=== PATIENT | female | born 1955 | race Caucasian/White ===

== ENCOUNTER → 2019-08-08 13:54 | Outpatient (CLI) | payer OTHER, SELFPAY | DX: M81.0 Age-related osteoporosis without current pathological fracture (principal) | CPT/HCPCS: 77080 ==

== ENCOUNTER → 2023-01-16 11:23 | Outpatient (CLI) | payer OTHER, SELFPAY ==
--- NOTE | 2023-01-16 11:28 | DI.RAD.S_ITS ---
Bone Density Report Name: ALEXANDRA DALY Age: 67 Sex: Female Ethnicity: White Date of : 1955 Indication: osteopenia; monitoring treatment; Referring Provider: KATH TALLEY Study: Bone densitometry was performed. Exam Date: January 16, 2023 Accession number: [id number] Bone Density: Region BMD T-score Z-score Classification AP Spine(L1-L4) 0.963 -0.8 1.3 Normal Femoral Neck (Left) 0.517 -3.0 -1.2 Osteoporosis Total Hip (Left) 0.671 -2.2 -0.8 Osteopenia Femoral Neck (Right) 0.516 -3.0 -1.2 Osteoporosis Total Hip (Right) 0.672 -2.2 -0.7 Osteopenia Total Hip Mean 0.671 -2.2 -0.8 Osteopenia World Health Organization criteria for BMD impression classify patients as: Normal (T-score at or above -1.0), Osteopenia (T-score between -1.0 and -2.5), or Osteoporosis (T-score at or below -2.5). 10-year Fracture Risk: FRAX not reported because: Some T-score for Spine Total or Hip Total or Femoral Neck at or below -2.5 Treated for osteoporosis Previous Exams: -- Region Exam Age BMD T-score BMD Change BMD Change Date g/cm2 vs Baseline vs Previous -- AP Spine (L1-L4) 01/16/2023 67 0.963 -0.8 0.004 (0.4%)# 0.004 (0.4%)# 08/08/2019 63 0.959 -0.8 Total Hip(Left) 01/16/2023 67 0.671 -2.2 -0.024 (-3.5%)# -0.024 (-3.5%)# 08/08/2019 63 0.695 -2.0 Total Hip(Right) 01/16/2023 67 0.672 -2.2 -0.037 (-5.2%)# -0.037 (-5.2%)# 08/08/2019 63 0.709 -1.9 -- *Denotes significance at 95% confidence level, LSC for AP Spine = 0.022 g/cm2, LSC for Total Hip = 0.027 g/cm2 # Denotes dissimilar scan types or analysis methods Impression: The patient has osteoporosis, based on the Left Femoral Neck T-score. No significant bone loss was observed. Discussion: PATIENT UNDER TREATMENT WITH NO SIGNIFICANT BMD LOSS SINCE LAST EXAM. In an untreated patient, BMD typically declines with age. A lack of decline or gain is usually a sign that treatment is efficacious and fracture risk is reduced. It is important to ask patients whether they are taking their medications and to encourage continued and appropriate compliance with their osteoporosis therapies to reduce fracture risk. It is also important to review their risk factors and encourage appropriate calcium and vitamin D intakes, exercise, fall prevention and other lifestyle measures. Follow-Up: Consider a repeat BMD and Vertebral Fracture Assessment (VFA) exam in 2 years or sooner if medically necessary, to reassess this patient's status. Reported by: CAMPOS SRINIVASAN M.D. on 01/16/2023 12:04:00 PM.
--- NOTE | 2023-01-16 11:28 | DI.CT.S_ITS ---
PROCEDURE: CT CHEST WO CON INDICATIONS: F/U PULMONARY NODULE, OSTEOPOROSIS TECHNIQUE: Noncontrast 5 mm thick sections acquired from the pulmonary apices to the posterior costophrenic angles. 1 mm lung window, 5 mm thick coronal and sagittal and 7 mm axial MIP reformats were then acquired. For radiation dose reduction, the following was used: automated exposure control, adjustment of mA and/or kV according to patient size. COMPARISON: [facility], CT, CT LOW DOSE LUNG CA SCREENING, 01/30/2020, 13:00. Outside Facility, RG, CT THORAX W/O CONTRAST, 01/20/2021, 15:30. FINDINGS: Lungs and pleura: Nodules include: -right middle lobe: 5 mm (3/215), unchanged -right lower lobe: 5 mm (3/250), unchanged -left lower lobe: 4 mm (3/289), unchanged Emphysema is present. No consolidation or pleural effusion. Mediastinum: No pericardial effusion. Thoracic aorta and central pulmonary arteries are normal in size. Esophagus is normal in caliber. Coronary artery calcifications are present Bones and chest wall: Multilevel degenerative change of the visualized spine. No axillary or supraclavicular adenopathy by size criteria. Abdomen: Visualized upper abdominal solid organs and bowel loops appear normal in the absence of contrast. IMPRESSION: No significant interval change in small pulmonary nodules. Dictated by: Jose Holbrook M.D. on 01/20/2023 at 16:17 Approved by: Jose Holbrook M.D. on 01/20/2023 at 16:29
== END ==
PROVIDERS: Referring Provider Physician Assistant; Visit Provider Physician Assistant
DX: R91.8 Other nonspecific abnormal finding of lung field (principal); M81.0 Age-related osteoporosis without current pathological fracture; E21.3 Hyperparathyroidism, unspecified; Z78.0 Asymptomatic menopausal state; Z79.83 Long term (current) use of bisphosphonates
CPT/HCPCS: 71250; 77080

== ENCOUNTER 2023-01-18 15:01 | Emergency (ER) | payer OTHER, SELFPAY ==
[2023-01-18] VITALS (19 sets, daily range): BP systolic 129–175; BP diastolic 68–88; PULSE 69–86; RESP 14–24; TEMP 36.7; O2SAT 96–100; BMI 22.1
--- NOTE | 2023-01-18 | DI.RAD.S_ITS ---
PROCEDURE: XR FOREARM LT 2V INDICATIONS: POST REDUCTION TECHNIQUE: 2 views of the forearm were acquired. COMPARISON: [facility], CR, XR WRIST LT MIN 3V, 01/18/2023, 15:17. FINDINGS: Bones: Casting material obscures fine bony detail. Distal radius comminuted fracture, similar alignment. No proximal shaft fracture. No dislocations. No suspicious bony lesions. Soft tissues: No suspicious soft tissue calcifications or masses. IMPRESSION: Similar alignment of the distal radius fracture post casting. Dictated by: Marek Goodwin M.D. on 01/18/2023 at 20:06 Approved by: Marek Goodwin M.D. on 01/18/2023 at 20:08
--- NOTE | 2023-01-18 15:19 | DI.RAD.S_ITS ---
PROCEDURE: XR WRIST LT MIN 3V INDICATIONS: fall/injury TECHNIQUE: 4 views of the wrist were acquired. COMPARISON: None. FINDINGS: Bones: Comminuted fracture of the distal radius. There is mild impaction and dorsal angulation. No dislocations. No suspicious bony lesions. Scaphoid view: Intact. Soft tissues: No suspicious soft tissue calcifications. IMPRESSION: Distal radius fracture with dorsal angulation. Dictated by: Marek Goodwin M.D. on 01/18/2023 at 15:30 Approved by: Marek Goodwin M.D. on 01/18/2023 at 15:32
--- NOTE | 2023-01-18 15:19 | ED_ITS ---
HPI - Extremity Injury (Upper) <Anjel Winslow MD - Last Filed: 01/18/23 15:20> General Chief Complaint: Extremity Injury, Upper Stated Complaint: left wrist injury/fell yesterday Time Seen by Provider: 01/18/23 15:19 Source: patient Mode of arrival: Ambulatory History of Present Illness HPI narrative: While walking on the beach last night she tripped and fell and landed on her left wrist. She is had severe left wrist pain through the night though she thought it was initially sprain she believes now it may be fractured. She did land on her face she says but she did not lose consciousness nor she had any se ivonne head or neck pain since. She has a little bit of neck soreness but she is convinced she does not have a fracture. She is only here today because of left wrist pain. Past medical history otherwise relatively benign. No abdominal pain chest pain shortness of breath. Related Data Previous Rx's Medication Instructions Recorded hydrocodone 5 mg-acetaminophen 325 1 tab PO Q4-6H PRN pain #20 tabs 01/18/23 mg tablet Patient History <Anjel Winslow MD - Last Filed: 01/18/23 15:20> Social History Smoking Status: Former smoker Smoking Status: Former smoker alcohol intake frequency: 0-2 drinks per day Substance Use Type: does not use Exam <Anjel Winslow MD - Last Filed: 01/18/23 15:20> Narrative Exam Narrative: GENERAL: Alert, cooperative and in no distress. HEAD: Atraumatic. Normocephalic. EYES: Sclera are clear without icterus. Extraocular movements are full. ENT: No rhinorrhea. Oropharynx is moist. Mouth exam is benign. NECK: Supple. Full range of motion. No midline tenderness to the spine. Full range of motion minimal muscular tenderness. CARDIOVASCULAR: Normal rate and rhythm without murmur gallop or rub. RESPIRATORY: Clear to auscultation. Breath sounds equal bilaterally. No wheezes, rales, or rhonchi. GASTROINTESTINAL: Abdomen soft, non-tender, nondistended. EXTREMITIES: No edema, full range of motion. Obvious deformity to the distal wrist on the left normal radial and ulnar pulses. 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 BACK: Normal inspection, no CVA tenderness. NEURO: Nonfocal examination, normal speech, normal gait. SKIN: No rash or erythema of visible areas PSYCH: Normally oriented. Normal range of affect. Appropriate behavior Initial Vital Signs Initial Vital Signs: Vital Signs Temperature 98.1 F 01/18/23 15:13 Pulse Rate 86 01/18/23 15:13 Respiratory Rate 16 01/18/23 15:13 Blood Pressure 129/70 01/18/23 15:13 Pulse Oximetry 98 01/18/23 15:13 Oxygen Delivery Method Room Air 01/18/23 15:13 <Meek Guardado DO - Last Filed: 01/19/23 08:05> Initial Vital Signs Initial Vital Signs: Vital Signs Temperature 98.1 F 01/18/23 15:13 Pulse Rate 86 01/18/23 15:13 Respiratory Rate 16 01/18/23 15:13 Blood Pressure 129/70 01/18/23 15:13 Pulse Oximetry 98 01/18/23 15:13 Oxygen Delivery Method Room Air 01/18/23 15:13 <Meek Guardado DO - Last Filed: 01/19/23 08:05> Orthopedic Fracture Reduction Fracture #1: Time Out Performed: Yes Side: left Fracture Reduction Location: radius Technique: direct manipulation Post Reduction X-rays Demonstrate: anatomical reduction Post-reduction neuro exam: intact Post-reduction vascular exam: intact Splint Applied: Yes Patient Tolerated Procedure: Well Orthopedic Splinting/Casting Injury #1: Side: left Upper Extremity Injury Location: wrist Upper Extremity Immobilizer: sling/shoulder immobilizer and sugar tong splint Post splinting neuro exam: intact Post splinting vascular exam: intact Placed by: Provider Procedural Sedation Consent signed: Yes Time out performed: Yes Indication: fracture/dislocation reduction ASA Class: II Mallampati Airway Classification: Class II Preparation: secured entrance monitor applied, pulse oximeter, capnometry used, supplemental O2 applied, suction/airway equipment at bedside and IV secured IV Propofol dose (mg): 40 Intraservice time/total sedation time (min): 12 ED Sedation Level: Moderate (Concious) Patient Tolerated Procedure: Well Complications: none Course <Anjel Winslow MD - Last Filed: 01/18/23 15:20> Orders Ordered: Discontinued Medications Hydrocodone Bitart/Acetaminophen (Hydrocodone/Acet 5/325 Prepack) 1 bottle MISC SEEINSTR ONE Stop: 01/18/23 18:20 Last Admin: 01/18/23 19:58 Dose: 1 bottle Documented By: ERNST Ondansetron HCl (Ondansetron 4 Mg Odt Prepack) 1 bottle MISC SEEINSTR ONE Stop: 01/18/23 18:20 Last Admin: 01/18/23 19:58 Dose: 1 bottle Documented By: ERNST Propofol (Propofol 200 Mg/20 Ml Vial) 115 mg 2 mg/kg (115 mg) IV NOW ONE Stop: 01/18/23 15:50 Last Admin: 01/18/23 19:03 Dose: Not Given Documented By: CTS Propofol (Propofol 200 Mg/20 Ml Vial) 55 mg 1 mg/kg (55 mg) IV NOW ONE Stop: 01/18/23 18:20 Last Admin: 01/18/23 19:03 Dose: 40 mg Documented By: CTS Vital Signs Vital signs: Vital Signs - 8 hr 01/18/23 15:13 Temperature 98.1 F Pulse Rate 86 Respiratory Rate 16 Blood Pressure 129/70 Pulse Oximetry 98 Oxygen Delivery Method Room Air <Meek Guardado DO - Last Filed: 01/19/23 08:05> Orders Ordered: Discontinued Medications Hydrocodone Bitart/Acetaminophen (Hydrocodone/Acet 5/325 Prepack) 1 bottle MISC SEEINSTR ONE Stop: 01/18/23 18:20 Last Admin: 01/18/23 19:58 Dose: 1 bottle Documented By: ERNST Ondansetron HCl (Ondansetron 4 Mg Odt Prepack) 1 bottle MISC SEEINSTR ONE Stop: 01/18/23 18:20 Last Admin: 01/18/23 19:58 Dose: 1 bottle Documented By: ERNST Propofol (Propofol 200 Mg/20 Ml Vial) 115 mg 2 mg/kg (115 mg) IV NOW ONE Stop: 01/18/23 15:50 Last Admin: 01/18/23 19:03 Dose: Not Given Documented By: CTS Propofol (Propofol 200 Mg/20 Ml Vial) 55 mg 1 mg/kg (55 mg) IV NOW ONE Stop: 01/18/23 18:20 Last Admin: 01/18/23 19:03 Dose: 40 mg Documented By: CTS Consultations Consultation #1: Dr. Lopez (Ortho)> happy with plan. Splint, sling, pain control, follow up. Vital Signs Vital signs: Vital Signs - 8 hr 01/18/23 15:13 Temperature 98.1 F Pulse Rate 86 Respiratory Rate 16 Blood Pressure 129/70 Pulse Oximetry 98 Oxygen Delivery Method Room Air MDM - Extremity Injury (Upper) <Anjel Winslow MD - Last Filed: 01/18/23 15:20> Lab Data Labs: Point of Care Testing Test Results Negative <Meek Guardado DO - Last Filed: 01/19/23 08:05> Lab Data Labs: Point of Care Testing Test Results Negative MDM Narrative Medical decision making narrative: [67] year old patient presents with wrist pain after ground level mechanical fall Multiple etiologies for patient's symptoms considered including, but not limited to: [Fracture, dislocation versus other] Prior Charts reviewed in our EMR Primary Historian: patient Imaging reviewed: Distal radius fracture with dorsal angulation Consultations: Orthopedics, see details above Patient's symptoms improved over duration of stay with above-stated therapies. Patient in splint and sling, sent with prepack for both hydrocodone and Zofran, prescription for hydrocodone. Patient given instructions for follow-up and contact information for Orthopedic office. Findings and discharge diagnosis discussed with patient/family followed by verbalization of understanding Return precautions discussed with patient/family whom verbalize understanding of diagnosis and plan Discharge Plan Departure Patient Disposition: Home Clinical Impression: Distal radial fracture Qualifiers: Encounter type: initial encounter Fracture type: closed Fracture morphology: other fracture Laterality: left Qualified Code(s): S52.592A - Other fractures of lower end of left radius, initial encounter for closed fracture Instructions: DI for Distal Radius Fracture Activity Restrictions/Additional Instructions: *You have been diagnosed with [left distal radius fracture] *What to do: *Please continue to take your regular medications as directed. [ x] New medication prescriptions sent to your pharmacy: [ [facility] in [place]] [ ] New medication written as a paper prescription [x] Tylenol and occasional Motrin for pain *Please follow up with [ John] of [facility] in 2-3 days, call for an appointment. Let them know you were seen in the Emergency Department and that we ask that you be seen in follow up. We will electronically transmit a record of today's note if your PCP is in our system *Return to Emergency Department if you should have any new, worsening or concerning symptoms, such as [worsening pain, significant swelling, cold extremities, numbness, tingling, weakness or other bothersome symptoms Splint Care: Keep splint clean and dry. Elevated affected body part to decrease swelling. OK to use ice pack on the affected body part. Use for 15-20 minutes each time, for 5-6x per day. If you develop worsening pain, numbness, tingling, discoloration of the affected body part, loosen the splint by loosening the NATE wrap, and either see your doctor for an urgent re-assessment, or return to the Emergency Department. Return to the Emergency Department for any new or worsening symptoms. You have been prescribed a short course of narcotic medications. These are potentially dangerous and addictive medications that should be used carefully. While on these medications you cannot drive or operate heavy machinery. Additionally, you cannot sign legal documents or perform any duties such as this. 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 Please understand that we cannot provide further refills of narcotics or controlled substances through the ED and your pain management will need to be through your Primary Care Provider Prescriptions: New hydrocodone-acetaminophen 5-325 mg tablet 1 tab PO Q4-6H PRN (Reason: pain) Qty: 20 0RF Referrals: Talha Lopez MD [Physician] - Leana Warner MD [Primary Care Provider] - Stand Alone Forms: Patient Portal/API
[2023-01-18] MEDS: propofoL 200 MG/20 ML VIAL 55 MG IV (19:03)
[2023-01-18] MEDS: HYDROCODONE/ACET 5/325 PREPACK 1 BOTTLE MISC (19:58)
[2023-01-18] MEDS: ONDANSETRON 4 MG ODT PREPACK 1 BOTTLE MISC (19:58)
== END 2023-01-18 20:05 | disposition home or self-care (01) ==
PROVIDERS: Emergency Provider Emergency Medicine
DX: S52.502A Unspecified fracture of the lower end of left radius, initial encounter for closed fracture (principal); W01.0XXA Fall on same level from slipping, tripping and stumbling without subsequent striking against object, initial encounter
CPT/HCPCS: 25605; 29125; 73090; 73110; 99152; 99284; J2704

== ENCOUNTER 2023-01-22 09:26 | Day surgery (SDC) | payer OTHER, SELFPAY ==
[2023-01-21 13:30] VITALS: BMI 22.1
[2023-01-22] VITALS (9 sets, daily range): BP systolic 152–189; BP diastolic 69–94; PULSE 15–82; RESP 12–18; TEMP 36.4–36.9; O2SAT 96–99; BMI 22.1
[2023-01-22] MEDS: LACTATED RINGERS 1,000 ML 42 ML IV (10:11)
--- NOTE | 2023-01-22 10:33 | P.HP_ITS ---
History of Present Illness History of Present Illness Date Patient Seen: 01/22/23 Time Patient Seen: 10:33 Chief complaint: SD Narrative: Charmaine is a pleasant 67-year-old female who presents today for a left distal radius fracture. She states she was hiking on a beach when she was stepping over a log and fell face forward. She lives in [place] with her . She was seen at emergency department where she had x-rays taken and was placed into a Velcro wrist splint. She currently denies any distal numbness or tingling. She has no other complaints at this time. Patient History Medical History Depression Hypertension Hypothyroid Family & Social History Social History: household members spouse Tobacco & Substance use: Smoking Status Former smoker alcohol intake never alcohol intake frequency 0-2 drinks per day Substance Use Type does not use Meds Home Medications and Allergies Home Medications Medication Instructions Recorded Confirmed Type hydrocodone 5 mg-acetaminophen 325 1 tab PO Q4-6H PRN pain #20 tabs 01/18/23 01/22/23 Rx mg tablet levothyroxine 112 mcg tablet 112 mcg PO DAILY 01/21/23 01/22/23 History losartan 25 mg tablet 75 mg PO BEDTIME 01/21/23 01/22/23 History sertraline 25 mg tablet 75 mg PO DAILY 01/21/23 01/22/23 History ropinirole 01/22/23 History Allergies Allergy/AdvReac Type Severity Reaction Status Date / Time No Known Drug Allergies Allergy Verified 01/21/23 12:59 Review of Systems Review of Systems ROS: Yes All systems reviewed with the patient and are negative except as otherwise documented Exam Vital Signs (past 8 hours): - 01/22/23 09:57 Temperature 97.6 F Pulse Rate 15 L Respiratory Rate 16 Blood Pressure 152/81 H Pulse Oximetry 99 Oxygen Delivery Method Room Air Oxygen Delivery Method Room Air Narrative Exam Narrative: HEENT: Head atraumatic eyes anicteric moist mucous membranes Cardiovascular: Palpable peripheral pulses extremities are warm and well perfused Respiratory: Breathing comfortably on room air Psychiatric: Appropriate mood and affect Neuro: No acute deficits Musculoskeletal: Exam of the left upper extremity demonstrates swelling and bruising around the distal radius. Able to give thumbs up, cross fingers, make A-OK sign. Sensation intact to median, radial, ulnar nerve distributions. 2+ radial pulse brisk capillary refill less than 2 seconds. Assessment & Plan Assessment & Plan narrative: Assessment: 67-year-old female with left distal radius fracture Plan: Exam and imaging discussed with the patient. Due to the angulation of the fracture and failed reduction. We discussed that she was indicated for operative treatment of her distal radius fracture for fascia recovery, decreased rate of posttraumatic arthritis and increased range of motion and function of her wrist long-term. Risks and benefits of surgery were discussed again including the risk of infection, damage to internal structures, bleeding, nerve injury, instability, need for revision surgery, blood clots, anesthesia and . No guarantees were made regarding outcomes. Patient expressed understanding and accepted these risks and wished to go forward with surgery and consent was signed. She expressed understanding with these risks and wished to go forward with surgery.
[2023-01-22] MEDS: CEFAZOLIN 2 GM/100 ML PREMIX 100 ML IV (10:51)
--- NOTE | 2023-01-22 11:16 | SUR.OPER ---
Supine on padded OR bed, head on pillow, right arm secured on padded arm boards at <90 degrees abduction, left arm extended on hand table, legs uncrossed, safety belt at thigh, tape over blanket over lower legs. Pt positioned per direction and supervision of Dr Lopez.
[2023-01-22] MEDS: BUPIVACAINE 0.25% W/ EPI 30 ML VIAL INJ (11:22)
--- NOTE | 2023-01-22 12:13 | PM.OP.1 ---
Operative Date/Time/Diagnoses Date of procedure: 01/22/23 Time of procedure: 12:13 Pre-op diagnosis: Left distal radius fracture Post-op diagnosis: same Procedure & Clinicians Procedure: Operative fixation left distal radius fracture Same procedure as scheduled: Yes Indications: This is a 67-year-old female who had a ground level fall sustaining a left distal radius fracture. Reduction was attempted in the emergency department which was unsuccessful. In order to restore radial inclination volar tilt and ensure proper healing of the fracture, she was indicated for distal radius ORIF. Surgeon: Talha Lopez Click Yes if Unassisted: Yes Anesthesia Type: General Operative Notes Findings: Extra-articular distal radius fracture Closure Type: primary Specimen(s): none sent Prosthetic devices, grafts, tissues, transplants, or devices: Standard Acumed locking distal radius plate Estimated Blood Loss (mL): 5 Blood products transfused: none Tourniquet time (min): 30 Procedure in detail: Patient was met in the preoperative holding area. Her left upper extremity was examined and marked. We again went over consent discussed the risks including the risks of bleeding, infection, damage to internal structures including the radial artery and median nerve, numbness and tingling, failure of implants, malunion, and future surgery. All of her questions were answered fully to her satisfaction and she wished to go forward with the surgery. She was brought back to the operating room and placed supine on operating table. She underwent smooth induction of anesthesia and antibiotics were given. Tourniquet was applied to the left upper extremity. The left arm was then prepped and draped in the standard sterile fashion. Appropriate drying time was observed. Time-out was performed and again my initials were noted. We began with a modified Gael approach to the volar distal radius on the left side. FCR and FPL were retracted ulnarly and the radial nerve was retracted radially. Pronator quadratus was elevated off of the distal radius and the fracture was encountered. A manual reduction was performed and a K-wire was placed through the radial styloid to hold the reduction. An Acumed distal radius locking plate was applied to the distal radius and positioned provisionally with K-wires. The oblong shaft screw was then filled with a nonlocking cortical screw. We then sequentially filled the distal locking holes with locking screws. We then returned to the shaft and filled the last 2 remaining nonlocking cortical holes. The provisional K-wire was removed and final images were obtained confirming screw length and maintenance of reduction. Skin was then closed with 3-0 Vicryl and 3-0 Monocryl. Wound was then dressed with Xeroform, 4x4s, cast padding and a volar splint. Complications: none Post-operative Condition: stable Disposition: PACU Plan for aftercare: She will remain in her volar splint for 2 weeks. She will be removed from the splint and transitioned to a Velcro wrist brace in clinic. Do not get the dressings wet.
--- NOTE | 2023-01-22 12:30 | SUR.PHASEI ---
Dr Reed notified of BP. No further orders at this time.
== END 2023-01-22 13:44 | disposition home or self-care (01) ==
PROVIDERS: Referring Provider Orthopaedic Surgery; Visit Provider Orthopaedic Surgery
PROC: (CPT 25607; principal; 2023-01-22 10:45)
DX: S52.502A Unspecified fracture of the lower end of left radius, initial encounter for closed fracture (principal); W01.0XXA Fall on same level from slipping, tripping and stumbling without subsequent striking against object, initial encounter; Y93.01 Activity, walking, marching and hiking; Y92.832 Beach as the place of occurrence of the external cause
CPT/HCPCS: 25607; J0690; J1100; J2250; J2405; J2704; J3010

== ENCOUNTER → 2024-10-25 11:10 | Outpatient (CLI) | payer OTHER, SELFPAY ==
--- NOTE | 2024-10-25 | DI.MRI.S_ITS ---
PROCEDURE: MR HEAD/BRAIN WO CON INDICATIONS: Dizziness TECHNIQUE: Non-contrast axial T1 spin echo, axial T2 fast spin echo, sagittal and axial FLAIR, coronal T2 fast spin echo, axial gradient echo, axial diffusion and ADC through the brain. COMPARISON: None. FINDINGS: Image quality: This examination is limited by involuntary motion artifact. CSF spaces: Ventricles appear symmetric in size and shape. Basal cisterns are patent. No extra-axial fluid collections. Brain: No intracranial bleeds or mass effects. There is cerebral volume loss for age. There are periventricular and deep white matter chronic small vessel ischemic changes. Brainstem appears normal. Diffusion-weighted images show no acute infarct. No chronic ischemic insults. Normal intravascular flow voids are present. Skull and face: Calvarial bone marrow is normal in signal. Orbits are normal. Sinuses: Sinuses and mastoids are clear. IMPRESSION: Motion limited study, without a cause of the patient's presenting history identified. No findings of acute or subacute infarction can be seen. No prior territorial infarct can be seen. To the limits of this noncontrast study, no findings of intracranial masses or mass effect can be seen. Dictated by: Damir Mcnamara M.D. on 10/25/2024 at 11:11 Approved by: Damir Mcnamara M.D. on 10/25/2024 at 11:12
== END ==
PROVIDERS: PCP Physician Assistant; Referring Provider Physician Assistant; Visit Provider Physician Assistant
DX: R42 Dizziness and giddiness (principal)
CPT/HCPCS: 70551

== ENCOUNTER → 2025-10-20 13:43 | Outpatient (CLI) | payer OTHER, SELFPAY ==
--- NOTE | 2025-10-20 13:45 | DI.CT.S_ITS ---
PROCEDURE: CT CHEST WO CON INDICATIONS: lung cancer screening TECHNIQUE: Noncontrast 5 mm thick sections acquired from the pulmonary apices to the posterior costophrenic angles. 1 mm lung window, 5 mm thick coronal and sagittal and 7 mm axial MIP reformats were then acquired. For radiation dose reduction, the following was used: automated exposure control, adjustment of mA and/or kV according to patient size. COMPARISON: [facility], CT, CT CHEST WO CON, 01/16/2023, 11:46. FINDINGS: Image quality: Diagnostic Lungs and pleura: Small pulmonary nodules again seen for example right lower lobe image 3/236 measuring 5 mm. Right middle lobe 5 mm nodule (image 3/206) also measures 5 mm. Left lower lobe 4 mm nodule (3/267) also seen. These are stable. No suspicious new or enlarging nodule. Other smaller nodules also present. Mediastinum, heart, and esophagus: Coronary calcifications. Trace hiatal hernia. Overall normal heart size. No mediastinal lymph nodes enlarged by size criteria. Unremarkable CT appearance of the esophagus otherwise. Chest wall and thyroid: Unremarkable Upper abdomen: Suspect small left lobe liver cyst suspect left lobe liver cyst measuring 1.3 cm. Bones: There are degenerative osseous changes. No aggressive appearing osseous abnormality. Height loss of several vertebral bodies most notably T12, which is increased from prior imaging. There is also superior endplate height loss at T6. IMPRESSION: Stable small pulmonary nodules. Recommend continued lung cancer surveillance imaging. No airspace consolidation or pleural effusion. Coronary calcifications. Height loss at T6 and T12, new from prior, though nonacute appearing on today's CT, correlate with any symptoms. Other findings above. Dictated by: Scooter Barakat M.D. on 10/21/2025 at 9:24 Approved by: Scooter Barakat M.D. on 10/21/2025 at 9:32
== END ==
LOC: CT 13:44
PROVIDERS: PCP Physician Assistant; Referring Provider Physician Assistant; Visit Provider Family Medicine
DX: Z12.2 Encounter for screening for malignant neoplasm of respiratory organs (principal); R91.8 Other nonspecific abnormal finding of lung field; I25.10 Atherosclerotic heart disease of native coronary artery without angina pectoris
CPT/HCPCS: 71250